=== PATIENT | male | born 1955 | race Caucasian/White ===

== ENCOUNTER 2020-02-28 16:51 | Emergency (ER) | payer BC, MEDICARE ==
[2020-02-28] MEDS ORDERED: Acetaminophen 325 MG Tab PO PRN (17:41)
--- NOTE | 2020-02-28 17:47 | EDM.PDOC ---
ED HPI GENERAL MEDICAL PROBLEM - General Chief Complaint: General Stated Complaint: SOB Time Seen by Provider: 02/28/20 17:31 Source of Information: Reports: Patient, Family, RN Notes Reviewed History Limitations: Reports: No Limitations - History of Present Illness INITIAL COMMENTS - FREE TEXT/NARRATIVE: 64-year-old gentleman presents emergency department with a complaint of s hortness of breath, he states is really progressed over the last 24 hours has developed a fever he does get winded when he goes upstairs however it is worse than usual. There is a possibility for exposure to Covid. He is also been dealing an open wound on his left leg for about 3 weeks he states it really has not changed much in its character - Related Data Allergies Allergy/AdvReac Type Severity Reaction Status Date / Time No Known Allergies Allergy Verified 02/28/20 17:21 Home Meds: Home Meds NK [No Known Home Meds] 02/28/20 [History] Past Medical History Musculoskeletal History: Reports: Arthritis Endocrine/Metabolic History: Reports: Obesity/BMI 30+ - Past Surgical History Musculoskeletal Surgical History: Reports: Arthroscopic Knee Social & Family History - Tobacco Use Tobacco Use Status *Q: Never Tobacco User ED ROS GENERAL - Review of Systems Review Of Systems: See Below Constitutional: Reports: Fever HEENT: Reports: No Symptoms Respiratory: Reports: Shortness of Breath Cardiovascular: Reports: Dyspnea on Exertion GI/Abdominal: Reports: No Symptoms ED EXAM, GENERAL - Physical Exam Exam: See Below Exam Limited By: No Limitations General Appearance: Alert, WD/WN, No Apparent Distress Respiratory/Chest: No Respiratory Distress, Lungs Clear, Normal Breath Sounds, No Accessory Muscle Use, Chest Non-Tender Cardiovascular: Regular Rate, Rhythm, No Murmur Course - Vital Signs Last Recorded V/S: Last Vital Signs Temp 102.4 F H 02/28/20 17:54 Pulse 117 H 02/28/20 17:29 Resp 20 02/28/20 17:29 BP 149/74 H 02/28/20 17:29 Pulse Ox 94 L 02/28/20 17:29 - Orders/Labs/Meds Orders: Active Orders 24 hr Category Date Time Status Nurse Communication: Isolation [RC] ASDIRECTED Care 02/28/20 17:44 Active Chest 1V Frontal [CR] Stat Exams 02/28/20 17:44 Stop Req Acetaminophen [TylenoL] Med 02/28/20 17:41 Active 650 mg PO Q4H PRN Isolation [COMM] Stat Oth 02/28/20 17:42 Ordered Medication Orders Acetaminophen (Tylenol) 650 mg PO Q4H PRN PRN Reason: Fever Greater Than 101 Last Admin: 02/28/20 17:54 Dose: 650 mg Documented by: ARUNA Labs: Laboratory Tests 02/28/20 02/28/20 02/28/20 Range/Units 17:44 18:03 18:03 WBC 9.7 (4.5-11.0) K/uL RBC 5.29 (4.30-5.90) M/uL Hgb 14.5 (12.0-15.0) g/dL Hct 45.6 (40.0-54.0) % MCV 86 (80-98) fL MCH 27 (27-31) pg MCHC 32 (32-36) % Plt Count 217 (150-400) K/uL Neut % (Auto) 87 H (36-66) % Lymph % (Auto) 4 L (24-44) % [place] % (Auto) 6 (2-6) % Eos % (Auto) 2 (2-4) % Baso % (Auto) 0 (0-1) % PT (9.5-12.0) sec INR (0.80-1.20) D-Dimer, Quantitative (0.0-500.0) ng/mL Sodium (140-148) mmol/L Potassium (3.6-5.2) mmol/L Chloride (100-108) mmol/L Carbon Dioxide (21-32) mmol/L Anion Gap (5.0-14.0) mmol/L BUN (7-18) mg/dL Creatinine (0.8-1.3) mg/dL Est Cr Clr Drug Dosing mL/min Estimated GFR (MDRD) (>60) Glucose (74-106) mg/dL Lactic Acid (0.4-2.0) mmol/L Calcium (8.5-10.1) mg/dL Ferritin 375 (8-388) ng/ml Total Bilirubin (0.2-1.0) mg/dL Direct Bilirubin (0.0-0.2) mg/dL Indirect Bilirubin AST (15-37) U/L ALT (12-78) U/L Alkaline Phosphatase (46-116) U/L Lactate Dehydrogenase (85-227) U/L Troponin I (0.000-0.056) ng/mL C-Reactive Protein (0.0-0.3) mg/dL Total Protein (6.4-8.2) g/dL Albumin (3.4-5.0) g/dL Globulin (2.3-3.5) g/dL Albumin/Globulin Ratio (1.2-2.2) Procalcitonin ng/mL Influenza Type A RNA Negative (NEGATIVE) Influenza Type B RNA Negative (NEGATIVE) RSV Rapid Negative (NEGATIVE) SARS-CoV-2 RNA ([facility]) Negative (NEGATIVE) 02/28/20 02/28/20 02/28/20 Range/Units 18:03 18:03 18:03 WBC (4.5-11.0) K/uL RBC (4.30-5.90) M/uL Hgb (12.0-15.0) g/dL Hct (40.0-54.0) % MCV (80-98) fL MCH (27-31) pg MCHC (32-36) % Plt Count (150-400) K/uL Neut % (Auto) (36-66) % Lymph % (Auto) (24-44) % [place] % (Auto) (2-6) % Eos % (Auto) (2-4) % Baso % (Auto) (0-1) % PT (9.5-12.0) sec INR (0.80-1.20) D-Dimer, Quantitative 862.01 H (0.0-500.0) ng/mL Sodium 136 L (140-148) mmol/L Potassium 4.1 (3.6-5.2) mmol/L Chloride 100 (100-108) mmol/L Carbon Dioxide 27 (21-32) mmol/L Anion Gap 13.1 (5.0-14.0) mmol/L BUN 1 L (7-18) mg/dL Creatinine 1.0 (0.8-1.3) mg/dL Est Cr Clr Drug Dosing 86.85 mL/min Estimated GFR (MDRD) > 60 (>60) Glucose 125 H (74-106) mg/dL Lactic Acid 2.3 H (0.4-2.0) mmol/L Calcium 8.6 (8.5-10.1) mg/dL Ferritin (8-388) ng/ml Total Bilirubin 0.5 (0.2-1.0) mg/dL Direct Bilirubin 0.17 (0.0-0.2) mg/dL Indirect Bilirubin 0.33 AST 47 H (15-37) U/L ALT 64 (12-78) U/L Alkaline Phosphatase 77 (46-116) U/L Lactate Dehydrogenase 215 (85-227) U/L Troponin I (0.000-0.056) ng/mL C-Reactive Protein 1.83 H (0.0-0.3) mg/dL Total Protein 7.3 (6.4-8.2) g/dL Albumin 3.6 (3.4-5.0) g/dL Globulin 3.7 H (2.3-3.5) g/dL Albumin/Globulin Ratio 1.0 L (1.2-2.2) Procalcitonin ng/mL Influenza Type A RNA (NEGATIVE) Influenza Type B RNA (NEGATIVE) RSV Rapid (NEGATIVE) SARS-CoV-2 RNA ([facility]) (NEGATIVE) 02/28/20 02/28/20 02/28/20 Range/Units 18:03 18:03 18:03 WBC (4.5-11.0) K/uL RBC (4.30-5.90) M/uL Hgb (12.0-15.0) g/dL Hct (40.0-54.0) % MCV (80-98) fL MCH (27-31) pg MCHC (32-36) % Plt Count (150-400) K/uL Neut % (Auto) (36-66) % Lymph % (Auto) (24-44) % [place] % (Auto) (2-6) % Eos % (Auto) (2-4) % Baso % (Auto) (0-1) % PT 11.1 (9.5-12.0) sec INR 1.02 (0.80-1.20) D-Dimer, Quantitative (0.0-500.0) ng/mL Sodium (140-148) mmol/L Potassium (3.6-5.2) mmol/L Chloride (100-108) mmol/L Carbon Dioxide (21-32) mmol/L Anion Gap (5.0-14.0) mmol/L BUN (7-18) mg/dL Creatinine (0.8-1.3) mg/dL Est Cr Clr Drug Dosing mL/min Estimated GFR (MDRD) (>60) Glucose (74-106) mg/dL Lactic Acid (0.4-2.0) mmol/L Calcium (8.5-10.1) mg/dL Ferritin (8-388) ng/ml Total Bilirubin (0.2-1.0) mg/dL Direct Bilirubin (0.0-0.2) mg/dL Indirect Bilirubin AST (15-37) U/L ALT (12-78) U/L Alkaline Phosphatase (46-116) U/L Lactate Dehydrogenase (85-227) U/L Troponin I 0.118 H* (0.000-0.056) ng/mL C-Reactive Protein (0.0-0.3) mg/dL Total Protein (6.4-8.2) g/dL Albumin (3.4-5.0) g/dL Globulin (2.3-3.5) g/dL Albumin/Globulin Ratio (1.2-2.2) Procalcitonin 1.53 ng/mL Influenza Type A RNA (NEGATIVE) Influenza Type B RNA (NEGATIVE) RSV Rapid (NEGATIVE) SARS-CoV-2 RNA ([facility]) (NEGATIVE) Meds: Medications Generic Name Dose Route Start Last Admin Trade Name Freq PRN Reason Stop Dose Admin Acetaminophen 650 mg 02/28/20 17:41 02/28/20 17:54 Tylenol PO 650 mg Q4H PRN Administration Fever Greater Than 101 Discontinued Medications Generic Name Dose Route Start Last Admin Trade Name Freq PRN Reason Stop Dose Admin Cefazolin Sodium 1 gm 02/28/20 18:47 Ancef IM 02/28/20 18:48 ONETIME ONE Departure - Departure Time of Disposition: 18:51 Disposition: Home, Self-Care 01 Condition: Fair Clinical Impression: Cellulitis of right lower extremity - Discharge Information Instructions: Cellulitis, Adult Referrals: Fabiano Villatoro MD [Primary Care Provider] - Forms: ED Department Discharge Additional Instructions: Take full course of antibiotics, please followup with your primary care provider in 3-5 days if not better, please call return to the emergency department with worsening of symptoms. Sepsis Event Note (ED) - Evaluation Sepsis Screening Result: Possible Sepsis Risk - Focused Exam Vital Signs: Vital Signs Temp Temp Pulse Resp BP Pulse Ox 02/28/20 17:54 102.4 F H 02/28/20 17:29 102.4 F H 117 H 20 149/74 H 94 L 02/28/20 17:18 102.4 F H 117 H 20 149/74 H 94 L - My Orders Last 24 Hours: My Active Orders 02/28/20 17:41 Acetaminophen [TylenoL] 650 mg PO Q4H PRN 02/28/20 17:42 Isolation [COMM] Stat 02/28/20 17:44 Nurse Communication: Isolation [RC] ASDIRECTED Chest 1V Frontal [CR] Stat - Assessment/Plan Last 24 Hours: My Active Orders 02/28/20 17:41 Acetaminophen [TylenoL] 650 mg PO Q4H PRN 02/28/20 17:42 Isolation [COMM] Stat 02/28/20 17:44 Nurse Communication: Isolation [RC] ASDIRECTED Chest 1V Frontal [CR] Stat Plan: Assessment Acuity = acute Site and laterality = cellulitis right lower extremity Etiology = probable bacterial cause Manifestations = fever Location of injury = Home Lab values = CBC unremarkable CMP unremarkable D-dimer elevated 862 consistent with inflammatory marker lactic acid slightly elevated 2.3 consistent lactic acidosis CRP slightly elevated 1.83 inflammatory marker procalcitonin also elevated 1.53, Covid influenza a and B and RSV all negative, troponin elevated 0.118 consistent with inflammatory marker Plan Elected to treat empirically is given 1 g Ancef in the emergency department and then start on Keflex 500 mg p.o. every 6 hours x10 days he will follow-up with his primary care in the next 3 to 5 days for reevaluation This note was dictated using [employer] recognition software please call with any questions on syntax or grammar.
[2020-02-28 18:43] LABS: CORONAVIRUS COVID-19 NAA NEGATIVE (NEGATIVE)
[2020-02-28] MEDS ORDERED: ceFAZolin 1 GM Vial IM ONE (18:47)
[2020-02-28] MEDS ORDERED: Lactated Ringers 1,000 ML IV ONE (18:58)
[2020-02-28] MEDS ORDERED: Ibuprofen 600 MG Tab PO ONE ×2 (18:58→21:27)
[2020-02-28] MEDS ORDERED: Sodium Chloride 0.9% 10 ML Syringe FLUSH PRN (18:58)
[2020-02-28] MEDS ORDERED: ceFAZolin 2 GM in Premix Bag 1 BAG IV ONE (18:58)
[2020-02-28] MEDS ORDERED: Sodium Chloride 0.9% 1,000 ML IV SCH (19:15)
[2020-02-28] MEDS ORDERED: Bacitracin Oint 1 GM U/D Packet TOP ONE (20:47)
--- NOTE | 2020-02-29 10:23 | CR ---
CHEST: Portable 02/28/2020 at 6:32 PM CLINICAL HISTORY:Respiratory failure COMPARISON:None FINDINGS: Heart size is upper limits of normal. Pulmonary vascularity is normal. There is some mild interstitial prominence in both lower lung fry. This may be chronic. There are no effusions. IMPRESSION: Mild interstitial prominence in both lower lung fry. This may be chronic. If clinical symptomatology persists or worsens a repeat exam is recommended.
== END 2020-02-28 23:18 | disposition home or self-care (01) ==
LOC: JP.ED 16:51
DX: L03.115 Cellulitis of right lower limb (principal); R79.1 Abnormal coagulation profile; R79.89 Other specified abnormal findings of blood chemistry; E66.9 Obesity, unspecified; Z68.43 Body mass index [BMI] 50.0-59.9, adult; Z20.828 Contact with and (suspected) exposure to other viral communicable diseases
CPT/HCPCS: 36415; 71045; 80048; 80076; 82728; 83605; 83615; 84145; 84484; 85025; 85379; 85610; 86140; 93005; 93010; 96365; 99285; A9270; J0690; J7030

== ENCOUNTER 2021-10-23 21:28 | Emergency (ER) | payer MEDICARE ==
[2021-10-23] MEDS ORDERED: cefTRIAXone 1 GM, Lidocaine 1% 2.1 ML IM ONE ×2 (22:24)
== END 2021-10-23 22:50 | disposition home or self-care (01) ==
LOC: JP.ED 21:28
DX: L03.115 Cellulitis of right lower limb (principal); E66.9 Obesity, unspecified; Z68.43 Body mass index [BMI] 50.0-59.9, adult; Z79.899 Other long term (current) drug therapy
CPT/HCPCS: 96372; 99283; J0696